=== PATIENT | female | born 1955 | race Caucasian/White ===

== ENCOUNTER 2024-05-30 06:34 | Inpatient (IN) | payer MEDICARE, OTHER ==
[~2024-05-30] VITALS: Ht 167.6 cm; Wt 95.3 kg
[2024-05-30] MEDS ORDERED: LIDOCAINE 2%-EPI 1:100,000 30 ML VIAL ONE (06:54)
[2024-05-30] MEDS ORDERED: ANESTHESIA TRAY IN PYXIS 1 EA TRAY MC ONE (06:54)
[2024-05-30] MEDS ORDERED: dexaMETHasone SOD PHOSPHATE 2 ML ONE (06:55)
[2024-05-30] MEDS ORDERED: VANCOMYCIN 1 GM VIAL ONE (06:55)
[2024-05-30] MEDS ORDERED: ROCURONIUM BROMIDE 50 MG/5 ML ONE (07:13)
[2024-05-30] MEDS ORDERED: FENTANYL PF 250MCG/5ML AMPUL ONE (07:13)
[2024-05-30] MEDS ORDERED: LABETALOL 20 MG/4 ML VIAL ONE (08:23)
[2024-05-30] MEDS ORDERED: ACETAMINOPHEN 325 MG TABLET PO PRN (11:00)
[2024-05-30] MEDS ORDERED: GLIP5TAB13 PO (11:09)
[2024-05-30] MEDS ORDERED: AMOX1TAB16 PO (11:09)
[2024-05-30] MEDS ORDERED: METO-357 PO (11:09)
[2024-05-30] MEDS ORDERED: ASPI-1169 PO (11:09)
[2024-05-30] MEDS ORDERED: MAGN400T30 PO (11:09)
[2024-05-30] MEDS ORDERED: GABA300C PO (11:09)
[2024-05-30] MEDS ORDERED: SITA1TAB6 PO (11:09)
[2024-05-30] MEDS ORDERED: TRAM50TA2 PO (11:09)
[2024-05-30] MEDS ORDERED: CYAN-51 PO (11:09)
[2024-05-30] MEDS ORDERED: SIMV20TA2 PO (11:09)
[2024-05-30] MEDS: HYDROMORPHONE 1 MG/1 ML DISP.SYRIN IV PRN (11:52)
[2024-05-30] MEDS: IV NS 0.9% 1,000 ML IV PRN (13:35)
[2024-05-30 14:19] VITALS: BP 130/79; TEMP 98.3; O2SAT 96
[2024-05-30] MEDS: VANCOMYCIN 1 GM in IV D5W 250ml IV SCH (18:27)
[2024-05-30] MEDS ORDERED: DEXTROSE 50%-WATER 50 ML DISP.SYRIN IV PRN (19:00)
[2024-05-30 20:00] VITALS: BP 151/81; TEMP 97.3; O2SAT 98
[2024-05-30] MEDS: ONDANSETRON HCL/PF 4 MG/2 ML VIAL IV PRN (20:52)
[2024-05-30] MEDS: BLOOD SUGAR DIAGNOSTIC 1 EACH STRIP IN SCH (21:19)
[2024-05-30] MEDS: INSULIN REGULAR, HUMAN 100 UNIT/ML 3 ML VIAL SQ PRN (21:22)
== END 2024-05-31 12:30 | disposition home or self-care (01) | DRG 141 ==
LOC: DS 06:34 → MED 10:24
PROC: 0N5R0ZZ Destruction of Maxilla, Open Approach (ICD-10-PCS; 2024-05-30)
PROC: 0N5T0ZZ Destruction of Right Mandible, Open Approach (ICD-10-PCS; 2024-05-30)
PROC: 0NUT07Z Supplement Right Mandible with Autologous Tissue Substitute, Open Approach (ICD-10-PCS; 2024-05-30)
PROC: 0NUR07Z Supplement Maxilla with Autologous Tissue Substitute, Open Approach (ICD-10-PCS; 2024-05-30)
PROC: 0NST04Z Reposition Right Mandible with Internal Fixation Device, Open Approach (ICD-10-PCS; 2024-05-30)
PROC: 0NSR04Z Reposition Maxilla with Internal Fixation Device, Open Approach (ICD-10-PCS; principal; 2024-05-30 07:30)
DX: S02.40CA Maxillary fracture, right side, initial encounter for closed fracture (principal); M87.9 Osteonecrosis, unspecified; M27.2 Inflammatory conditions of jaws; S02.40DA Maxillary fracture, left side, initial encounter for closed fracture; S02.609A Fracture of mandible, unspecified, initial encounter for closed fracture; E66.9 Obesity, unspecified; I10 Essential (primary) hypertension; Z79.84 Long term (current) use of oral hypoglycemic drugs; Z79.82 Long term (current) use of aspirin; Z79.899 Other long term (current) drug therapy; E11.69 Type 2 diabetes mellitus with other specified complication; M27.40 Unspecified cyst of jaw; X58.XXXA Exposure to other specified factors, initial encounter; Y92.9 Unspecified place or not applicable; D16.4 Benign neoplasm of bones of skull and face; J32.0 Chronic maxillary sinusitis
CPT/HCPCS: 82962-TC; 88305-TC; 88311-TC; A4223; A4338; C1713; G0378; J0461; J0690; J1100; J1171; J1815; J2405; J2704; J3010; J3370; J3490; J7030; J7060

== ENCOUNTER 2024-10-17 07:25 | Inpatient (IN) | payer MEDICARE, OTHER ==
[~2024-10-17] VITALS: Ht 167.6 cm; Wt 91.6 kg
[~2024-10-17 07:25] MED LIST: ASPI-1169 PO; CYAN-51 PO; GABA300C PO; GLIP5TAB13 PO; MAGN400T30 PO; METO-357 PO; SIMV20TA2 PO; SITA1TAB6 PO; TRAM50TA2 PO
[2024-10-17] MEDS ORDERED: dexaMETHasone SOD PHOSPHATE 1 ML ONE (09:48)
[2024-10-17] MEDS ORDERED: VANCOMYCIN 1 GM VIAL ONE (09:48)
[2024-10-17] MEDS ORDERED: LIDOCAINE 2%-EPI 1:100,000 30 ML VIAL ONE (09:48)
[2024-10-17 12:15] VITALS: BP 153/74; TEMP 98.3; O2SAT 95
[2024-10-17] MEDS ORDERED: ONDANSETRON HCL/PF 4 MG/2 ML VIAL IVP PRN (13:00)
[2024-10-17] MEDS ORDERED: HYDROMORPHONE 1 MG/1 ML DISP.SYRIN IV PRN (13:00)
[2024-10-17] MEDS: IV NS 0.9% 1,000 ML IV PRN (13:07)
[2024-10-17 16:22] VITALS: BP 154/69; TEMP 97.9; O2SAT 96
[2024-10-17] MEDS: ACETAMINOPHEN 325 MG TABLET PO PRN (16:28)
[2024-10-17] MEDS ORDERED: DEXTROSE 50%-WATER 50 ML DISP.SYRIN IV PRN (17:30)
[2024-10-17] MEDS: BLOOD SUGAR DIAGNOSTIC 1 EACH STRIP IN SCH (17:31)
[2024-10-17] MEDS: INSULIN REGULAR, HUMAN 100 UNIT/ML 3 ML VIAL SQ PRN (17:36)
[2024-10-17 20:00] VITALS: BP 156/78; TEMP 97.5; O2SAT 95
[2024-10-17] MEDS: VANCOMYCIN 1 GM in IV D5W 250ml IV SCH (21:26)
[2024-10-18 08:00] VITALS: BP 148/72; TEMP 97.9; O2SAT 94
== END 2024-10-18 10:30 | disposition home or self-care (01) | DRG 496 ==
LOC: DS 07:25 → MED 10:22
PROVIDERS: ADMIT Nurse Practitioner Acute Care; ATTEND Nurse Practitioner Acute Care
PROC: 0NUR07Z Supplement Maxilla with Autologous Tissue Substitute, Open Approach (ICD-10-PCS; principal; 2024-10-17 10:20)
PROC: 0N5V0ZZ Destruction of Left Mandible, Open Approach (ICD-10-PCS; principal; 2024-10-17 10:20)
PROC: 0N5R0ZZ Destruction of Maxilla, Open Approach (ICD-10-PCS; principal; 2024-10-17 10:20)
PROC: 0N5T0ZZ Destruction of Right Mandible, Open Approach (ICD-10-PCS; principal; 2024-10-17 10:20)
PROC: 0NPW04Z Removal of Internal Fixation Device from Facial Bone, Open Approach (ICD-10-PCS; principal; 2024-10-17 10:20)
PROC: 0NSR04Z Reposition Maxilla with Internal Fixation Device, Open Approach (ICD-10-PCS; principal; 2024-10-17 10:20)
DX: T84.69XA Infection and inflammatory reaction due to internal fixation device of other site, initial encounter (principal); S02.40DA Maxillary fracture, left side, initial encounter for closed fracture; D16.4 Benign neoplasm of bones of skull and face; D16.5 Benign neoplasm of lower jaw bone; Y83.8 Other surgical procedures as the cause of abnormal reaction of the patient, or of later complication, without mention of misadventure at the time of the procedure; X58.XXXA Exposure to other specified factors, initial encounter; Y92.9 Unspecified place or not applicable; E66.9 Obesity, unspecified; I10 Essential (primary) hypertension; E11.9 Type 2 diabetes mellitus without complications; Z68.32 Body mass index [BMI] 32.0-32.9, adult
CPT/HCPCS: 82962-TC; A4223; A4338; C1713; G0378; J0360; J0461; J0690; J1100; J1815; J2704; J3373; J3490; J7030; J7060